=== PATIENT | male | born 1975 | race Caucasian/White ===

== ENCOUNTER 2016-08-01 06:33 | Day surgery (SDC) | payer BC ==
[~2016-08-01] VITALS: Ht 175.3 cm; Wt 74.5 kg
[2016-08-01 07:33] VITALS: Ht 175.3 cm; Wt 74.5 kg
[2016-08-01] MEDS ORDERED: OMEPRAZOLE (07:37)
[2016-08-01 08:00] VITALS: BP 140/89; PULSE 75; RESP 15
[2016-08-01] MEDS ORDERED: LIDOCAINE 4% SOLUTION 50 ML BTL ONE (08:22)
[2016-08-01 08:32] VITALS: BP 123/78; RESP 16
--- NOTE | 2016-08-01 13:25 | GILP ---
DATE OF PROCEDURE: 08/01/2016 PROCEDURE PERFORMED: EGD with biopsy. INDICATION: A 40-year-old male undergoing this procedure for heartburn and regurgitation and emesis intermittently. The risk of the procedure, related and unrelated complications, anesthetic sedativ e risks, alternatives were discussed and informed consent was obtained. DESCRIPTION OF PROCEDURE: The patient was brought to the GI lab service ____ was used. He was aske d to gargle with Xylocaine. As per his request, no medication was given to sedate him. Scope was p assed with much ease into esophagus. Z line was at 37 cm. The patient had three deep esophageal ul cerations. Stomach mucosa revealed gastritis. Duodenal mucosa had multiple kissing ulcers in the b ulb. Second part was within normal limits. Biopsy taken from the antrum to rule out H. pylori infe ction. Retroversion done. The patient had a 3 cm hiatal hernia. Scope was straightened out and re moved with good patient tolerance. IMPRESSION: 1. Esophageal ulcer, ____ class D. 2. A 3 cm hiatal hernia. 3. Gastritis. 4. Multiple kissing duodenal ulcers. PLAN: Review the histopathology, 3 to 4 biopsies were obtained from the stomach. In the interim, patient will be started on PPI 40 mg, change in lifestyle, change in diet ____. Dictated By: ANNY GARCIA/ALEC Conf#: [id number] DID#: [id number] CC: UDAY CARROLL; ANNY RICHEY MD;*End*
== END 2016-08-01 08:53 | disposition home or self-care (01) ==
LOC: GIL 06:33
PROVIDERS: ATTEND Internal Medicine Gastroenterology
DX: K22.10 Ulcer of esophagus without bleeding (principal); K44.9 Diaphragmatic hernia without obstruction or gangrene; K29.70 Gastritis, unspecified, without bleeding; K26.9 Duodenal ulcer, unspecified as acute or chronic, without hemorrhage or perforation
CPT/HCPCS: 43239; 88305; Z7610